=== PATIENT | female | born 1995 | race Two or more races ===

== ENCOUNTER 2024-09-19 09:29 | Emergency (ER) | payer BC ==
[2024-09-19] MEDS ORDERED: KETOROLAC 30 MG/ML INJ ONE (11:05)
--- NOTE | 2024-09-19 11:14 | EDPHYS ---
Physician Documentation [facility] Name: Lou Harris Age: 28 yrs Sex: Female : 1995 Arrival Date: 09/19/2024 Time: 09:29 Bed 12 Private MD: ED Physician Gisele Escalera HPI: 09/19 11:17 This 28 yrs old Female presents to ER via Ambulatory with complaints of Low gb1 Back Pain. 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 - Infectious Disease History:: Denies. - Social history:: Smoking status: Patient denies any tobacco usage or history of. Exam: 11:17 Constitutional: This is a well developed, well nourished patient who is awake, alert, gb1 and in no acute distress. Head/Face: Normocephalic, atraumatic. Eyes: Pupils equal round and reactive to light, extra-ocular motions intact. Lids and lashes normal. Conjunctiva and sclera are non-icteric and not injected. Cornea within normal limits. Periorbital areas with no swelling, redness, or edema. ENT: Nares patent. No nasal discharge, no septal abnormalities noted. Tympanic membranes are normal and external auditory canals are clear. Oropharynx with no redness, swelling, or masses, exudates, or evidence of obstruction, uvula midline. Mucous membranes moist. Neck: Trachea midline, no thyromegaly or masses palpated, and no cervical lymphadenopathy. Supple, full range of motion without nuchal rigidity, or vertebral point tenderness. No Meningismus. Chest/axilla: Normal chest wall appearance and motion. Nontender with no deformity. No lesions are appreciated. Cardiovascular: Regular rate and rhythm with a normal S1 and S2. No gallops, murmurs, or rubs. Normal PMI, no JVD. No pulse deficits. Respiratory: Lungs have equal breath sounds bilaterally, clear to auscultation and percussion. No rales, rhonchi or wheezes noted. No increased work of breathing, no retractions or nasal flaring. Abdomen/GI: Soft, non-tender, with normal bowel sounds. No distension or tympany. No guarding or rebound. No evidence of tenderness throughout. Back: No midline spinal tenderness. No costovertebral tenderness. Full range of motion. No radicular signs present on exam with forward bending, negative straight leg raise test b/l. Skin: Warm, dry with normal turgor. Normal color with no rashes, no lesions, and no evidence of cellulitis. MS/ Extremity: Pulses equal, no cyanosis. Neurovascular intact. Full, normal range of motion. Neuro: Awake and alert, GCS 15, oriented to person, place, time, and situation. Cranial nerves II-XII grossly intact. Motor strength 5/5 in all extremities. Sensory grossly intact. Cerebellar exam normal. Normal gait. Vital Signs: 09:40 BP 132 / 65; Pulse 73; Resp 16; Temp 98.9(O); Pulse Ox 100% on R/A; Weight 149.69 kg; hb Height 5 ft. 3 in. ; Pain 8/10; 09:40 Body Mass Index 58.46 (149.69 kg, 160.02 cm) hb 09:40 Pain Scale: Adult hb MDM: 09:52 Medical Screening Exam initiated gb1 11:17 Differential diagnosis: strain, sciatica, Herniated disc UTI. Data reviewed: vital gb1 signs, nurses notes. 11:17 ED course: I recommend MRI of the lumbar spine if your pain has not improved or it has gb1 worsened. Pt compliant with discharge plan of care.. Administered Medications: 11:09 Drug: Ketorolac IM 60 mg IM once Route: IM; Site: right deltoid; hb 11:35 Follow up: Response: No adverse reaction; Pain is decreased hb Disposition Summary: 09/19/24 11:13 Discharge Ordered Notes: Location: Home gb1 Condition: Stable gb1 Diagnosis - Low back pain gb1 Followup: gb1 - With: Private Physician - When: - Reason: Recheck today's complaints Discharge Instructions: - Discharge Summary Sheet hb - Acute Back Pain, Adult gb1 Forms: - Work release form hb - Medication Reconciliation Form gb1 - Antibiotic Education gb1 - Prescription Opioid Use gb1 - Patient Portal Instructions gb1 - Leadership Thank You Letter gb1 Prescriptions: - Ibuprofen 800 mg Oral Tablet - take 1 tablet ORAL route every 8 hours As needed take with food; 30 tablet; gb1 Refills: 0, Product Selection Permitted Signatures: Adriana Kebede, GEOFF RN hb Gisele Escalera MD MD gb1
--- NOTE | 2024-09-19 11:14 | ER ---
Nurse's Notes [facility] Name: Lou Harris Age: 28 yrs Sex: Female : 1995 Arrival Date: 09/19/2024 Time: 09:29 Bed 12 Private MD: Diagnosis: Low back pain Presentation: 09/19 09:40 Chief complaint: Low back pain that radiates to right leg upon waking today. hb Coronavirus screen: At this time, the client does not indicate any symptoms associated with coronavirus-19. Ebola Screen: No symptoms or risks identified at this time. Initial Sepsis Screen: Does the patient meet any 2 criteria? No. Patient's initial sepsis screen is negative. Does the patient have a suspected source of infection? No. Patient's initial sepsis screen is negative. Risk Assessment: Do you want to hurt yourself or someone else? Patient reports no desire to harm self or others. Onset of symptoms was September 19, 2024. 09:40 Method Of Arrival: Ambulatory hb 09:40 Acuity: SAJI 4 hb Triage Assessment: 09:54 General: Appears in no apparent distress. uncomfortable, Behavior is calm, cooperative. hb Pain: Pain currently is 8 out of 10 on a pain scale. at worst was 9 out of 10 on a pain scale. Neuro: Level of Consciousness is awake, alert, obeys commands, Oriented to person, place, time, situation. Cardiovascular: Patient's skin is warm and dry. Respiratory: Respiratory effort is even, unlabored, Respiratory pattern is regular, symmetrical. Musculoskeletal: Reports severe low back pain that radiates to right leg. 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 - Infectious Disease History:: Denies. - Social history:: Smoking status: Patient denies any tobacco usage or history of. Screenin:00 [facility] ED Fall Risk Assessment (Adult) History of falling in the last 3 months, hb including since admission No falls in past 3 months (0 pts) Confusion or Disorientation No (0 pts) Intoxicated or Sedated No (0 pts) Impaired Gait No (0 pts) Mobility Assist Device Used No (0 pt) Altered Elimination No (0 pt) Score/Fall Risk Level 0 - 2 = Low Risk Oriented to surroundings, Maintained a safe environment, Educated pt \T\ family on fall prevention, incl call for assistance when getting out of bed. Abuse screen: Denies threats or abuse. Denies injuries from another. Nutritional screening: No deficits noted. Tuberculosis screening: No symptoms or risk factors identified. Assessment: 10:00 General: See triage assessment . hb Vital Signs: 09:40 BP 132 / 65; Pulse 73; Resp 16; Temp 98.9(O); Pulse Ox 100% on R/A; Weight 149.69 kg; hb Height 5 ft. 3 in. ; Pain 8/10; 09:40 Body Mass Index 58.46 (149.69 kg, 160.02 cm) hb 09:40 Pain Scale: Adult hb ED Course: 09:35 Patient arrived in ED. im 09:40 Gisele Escalera MD is Attending Physician. gb1 09:53 Triage completed. hb 09:53 Arm band placed on. hb 10:00 Patient has correct armband on for positive identification. Provided Education on: use hb of call light . 10:00 No provider procedures requiring assistance completed. Patient did not have IV access hb during this emergency room visit. 11:08 Adriana Kebede RN is Primary Nurse. hb Administered Medications: 11:09 Drug: Ketorolac IM 60 mg IM once Route: IM; Site: right deltoid; hb 11:35 Follow up: Response: No adverse reaction; Pain is decreased hb Medication: 10:00 VIS not applicable for this client. hb Outcome: 11:13 Discharge ordered by . gb1 11:23 Discharged to home ambulatory, hb 11:23 Condition: stable 11:23 Discharge instructions given to patient, Instructed on discharge instructions, follow up and referral plans. medication usage, Demonstrated understanding of instructions, follow-up care, medications, Prescriptions given X 1, 11:35 Patient left the ED. hb Signatures: Adriana Kebede RN RN Cindi Martinez im Gisele Escalera MD MD gb1
[2024-09-19 11:46] VITALS: BP 132/65; TEMP 98.9; O2SAT 100
== END 2024-09-19 11:35 | disposition home or self-care (01) ==
LOC: ER 09:29
DX: M54.50 Low back pain, unspecified (principal)
CPT/HCPCS: 96372; 99284